=== PATIENT | female | born 1990 | race Caucasian/White ===

== ENCOUNTER 2019-02-21 19:40 | Emergency (ER) | payer MEDICAID ==
[~2019-02-21] VITALS: Ht 152.4 cm; Wt 89.8 kg
[2019-02-21 20:55] VITALS: BP_SYST 131
== END 2019-02-21 23:23 | disposition left against medical advice (07) ==
LOC: SED 19:40
DX: R05 Cough (principal); Z53.21 Procedure and treatment not carried out due to patient leaving prior to being seen by health care provider

== ENCOUNTER 2019-07-22 22:37 | Emergency (ER) | payer MEDICAID ==
[~2019-07-22] VITALS: Ht 152.4 cm; Wt 94.3 kg
[2019-07-22 22:41] VITALS: BP_SYST 115
[2019-07-22] MEDS ORDERED: LIDOCAINE 1% 10 MG/ML, 20 ML MDV INJ ONE (23:30)
[2019-07-22] MEDS ORDERED: LIDOCAINE 1%, 20 ML MDV 20 ML ONE (23:42)
[2019-07-23] MEDS ORDERED: BACITRACIN 1 GM OINT TP ONE ×2 (00:25→00:30)
[2019-07-23 00:31] VITALS: BP_SYST 122
[2019-07-24] MEDS ORDERED: ACET325T53 PO (18:20)
[2019-07-24] MEDS ORDERED: SULF-261 PO (18:20)
== END 2019-07-23 00:31 | disposition home or self-care (01) ==
LOC: SED 22:37
DX: N75.1 Abscess of Bartholin's gland (principal)
CPT/HCPCS: 56420; 99284; J2001

== ENCOUNTER 2019-07-24 18:09 | Emergency (ER) | payer MEDICAID ==
[~2019-07-24] VITALS: Ht 152.4 cm; Wt 90.7 kg
[2019-07-24] MEDS ORDERED: SULF-261 PO (18:20)
[2019-07-24] MEDS ORDERED: ACET325T53 PO (18:20)
[2019-07-24 18:21] VITALS: BP_SYST 122
[2019-07-24 18:35] VITALS: BP_SYST 122
== END 2019-07-24 18:37 | disposition home or self-care (01) ==
LOC: SED 18:09
DX: Z48.00 Encounter for change or removal of nonsurgical wound dressing (principal)
CPT/HCPCS: 99283

== ENCOUNTER 2019-11-22 18:57 | Emergency (ER) | payer MEDICAID ==
[~2019-11-22] VITALS: Ht 152.4 cm; Wt 93.9 kg
[~2019-11-22 18:57] MED LIST: ACET325T53 PO; SULF-261 PO
[2019-11-22 19:01] VITALS: BP_SYST 133
--- NOTE | 2019-11-22 20:02 | NUR ---
Patient to ER bed 04 to gown for evaluation. Side rails up.
== END 2019-11-22 20:07 | disposition left against medical advice (07) ==
LOC: SED 18:57
DX: R11.2 Nausea with vomiting, unspecified (principal); R19.7 Diarrhea, unspecified; Z53.21 Procedure and treatment not carried out due to patient leaving prior to being seen by health care provider

== ENCOUNTER 2020-03-12 19:19 | Emergency (ER) | payer MEDICAID ==
[~2020-03-12] VITALS: Ht 152.4 cm; Wt 94.3 kg
[2020-03-12 19:38] VITALS: BP_SYST 127
--- NOTE | 2020-03-12 19:38 | NUR ---
Patient triaged and placed in waiting room. VSS and patient appears in no acute distress at this time. Accompanied by SELF, awaiting available bed, and MD notified of need for MSE.
--- NOTE | 2020-03-12 19:40 | NUR ---
pt a&o x4 from home c/o of cold sore on left lower chin area and right lower lip that appeared yesterday. pt states she broke a fever three days ago then the cold sores started appearing. pt states they are ithcy, pain is at a 5 out of 10.
--- NOTE | 2020-03-12 19:54 | NUR ---
DEEDEE CORNELL at bedside examining patient.
[2020-03-12 20:16] VITALS: BP_SYST 126
--- NOTE | 2020-03-12 20:16 | NUR ---
Patient given written and verbal discharge instructions and verbalizes understanding. ER MD discussed with patient the results and treatment provided. Patient in stable condition. ID arm band removed. Rx of acyclovir and abreva given. Patient educated on pain management and to follow up with PMD. Pain Scale 2/10. Opportunity for questions provided and answered. Medication side effect fact sheet provided.
== END 2020-03-12 20:16 | disposition home or self-care (01) ==
LOC: SED 19:19
DX: B00.1 Herpesviral vesicular dermatitis (principal)
CPT/HCPCS: 99283

== ENCOUNTER 2020-12-14 19:42 | Emergency (ER) | payer MEDICAID ==
[~2020-12-14] VITALS: Ht 152.4 cm; Wt 88.5 kg
[2020-12-14 19:49] VITALS: BP_SYST 113
--- NOTE | 2020-12-14 19:49 | NUR ---
Patient triaged and placed in waiting room. VSS and patient appears in no acute distress at this time. Accompanied by FAMILY, awaiting available bed, and MD notified of need for MSE.
--- NOTE | 2020-12-14 19:50 | NUR ---
PT AAO AND AMBULATORY REPORTING LEFT SHOULDER PAIN X 4 DAYS. PT DENIES ANY TRAUMA, NUMBNESS, OR TINGLING. PT REPORTS PAIN 9/10 ON PAIN SCALE WITH HISTORY OF THYROID AND ASTHMA. NO OBVIOUS DEFORMITY NOTED.
--- NOTE | 2020-12-14 20:12 | NUR ---
DR. CORONEL TO TRIAGE TO ASSESS PT.
[2020-12-14] MEDS ORDERED: KETOROLAC TROMETHAMINE 60 MG/2 ML VIAL IM ONE (20:15)
--- NOTE | 2020-12-14 20:24 | NUR ---
ADMINISTERED PAIN MEDICATION TORADOL 60MG IM PER MD ORDER IN TRIAGE. UNABLE TO SCAN MEDICATION DUE TO NO WIFI IN TRIAGE AREA/LOBBY.
--- NOTE | 2020-12-14 21:05 | NUR ---
Dr trimble at chair side updating patient
[2020-12-14] MEDS ORDERED: NAPR-690 PO (21:09)
[2020-12-14 21:10] VITALS: BP_SYST 113
--- NOTE | 2020-12-14 21:10 | NUR ---
Patient given written and verbal discharge instructions and verbalizes understanding. ER MD discussed with patient the results and treatment provided. Patient in stable condition. ID arm band removed. Rx of NAPROXEN given. Patient educated on pain management and to follow up with PMD. Pain Scale 0/10. Opportunity for questions provided and answered. Medication side effect fact sheet provided.
== END 2020-12-14 21:10 | disposition home or self-care (01) ==
LOC: SED 19:42
DX: S46.912A Strain of unspecified muscle, fascia and tendon at shoulder and upper arm level, left arm, initial encounter (principal); E11.9 Type 2 diabetes mellitus without complications; E03.9 Hypothyroidism, unspecified; Z79.899 Other long term (current) drug therapy; X50.9XXA Other and unspecified overexertion or strenuous movements or postures, initial encounter; Y93.89 Activity, other specified; Y92.89 Other specified places as the place of occurrence of the external cause; Y99.8 Other external cause status
CPT/HCPCS: 73020; 96372; 99283; J1885

== ENCOUNTER 2023-10-03 02:03 | Emergency (ER) | payer MEDICAID ==
[~2023-10-03] VITALS: Ht 152.4 cm; Wt 83.9 kg
[~2023-10-03 02:03] MED LIST changes: +NAPR-690 PO
[2023-10-03 02:14] VITALS: BP_SYST 128; PULSE 89; RESP 18; TEMP 98.3; O2SAT 100
== END 2023-10-03 02:28 ==
LOC: SED 02:03
DX: R42 Dizziness and giddiness (principal); Z71.51 Drug abuse counseling and surveillance of drug abuser; E03.9 Hypothyroidism, unspecified; E11.9 Type 2 diabetes mellitus without complications; Z79.899 Other long term (current) drug therapy; Z79.2 Long term (current) use of antibiotics
CPT/HCPCS: 82948; 93005; 99283